=== PATIENT | male | born 1960 | race African-American/Black ===

== ENCOUNTER 2018-10-13 09:09 | Emergency (ER) | payer BC ==
[2018-10-13 09:17] VITALS: BMI 28.5
--- NOTE | 2018-10-13 09:25 | PDOC ---
History of Present Illness - General Chief Complaint: Diarrhea Stated Complaint: Diarrhea and Earche Time Seen by Provider: 10/13/18 09:25 - History of Present Illness Initial Comments: 10/13/18 09:38 Mr. Yanes is a 58 yo male w/ pmh of IDDM who presents for evaluation of several weeks of ear fullness with some decrease in hearing in R hear. Patient also describes several day history of "sour stomach" he describes as non- painful however not feeling normal and associated with foul smelling burps and reflux. Patient endorses 4 bowel movements this morning as well he describes as loose. The patient denies chest pain, shortness of breath, headache and dizziness. Denies fever, chills, nausea, vomit, and constipation. Denies dysuria, frequency , urgency and hematuria. Past History - Past Medical History Allergies/Adverse Reactions: Allergies Allergy/AdvReac Type Severity Reaction Status Date / Time No Known Allergies Allergy Verified 10/13/18 09:17 Home Medications: Ambulatory Orders Dulaglutide [Trulicity] 0.75 mg SQ DAILY 10/13/18 Insulin Glargine,Hum.rec.anlog [Lantus] 0 unit SQ ASDIR 10/13/18 COPD: No CHF: No Diabetes: Yes GI Disorders: No Liver Disease: No - Surgical History Cardiac Surgery: No Cholecystectomy: No - Immunization History Immunization Up to Date: No - Suicide/Smoking/Psychosocial Hx Smoking History: Never smoked Have you smoked in the past 12 months: No Information on smoking cessation initiated: No Hx Alcohol Use: No Drug/Substance Use Hx: No Review of Systems - Review of Systems Comments:: 10/13/18 09:40 GENERAL/CONSTITUTIONAL: No fever or chills. No weakness. HEAD, EYES, EARS, NOSE AND THROAT: +R ear fullness and decreased hearing as described. No change in vision. No ear pain or discharge. No sore throat. CARDIOVASCULAR: No chest pain or shortness of breath RESPIRATORY: No cough, wheezing, or hemoptysis. GASTROINTESTINAL: +Upset stomach w/ gastritis-like symptoms. Diarrhea today as described. No nausea, vomiting, or constipation. GENITOURINARY: No dysuria, frequency, or change in urination. MUSCULOSKELETAL: No joint or muscle swelling or pain. No neck or back pain. SKIN: No rash NEUROLOGIC: No headache, vertigo, loss of consciousness, or change in strength/ sensation. ENDOCRINE: No increased thirst. No abnormal weight change HEMATOLOGIC/LYMPHATIC: No anemia, easy bleeding, or history of blood clots. ALLERGIC/IMMUNOLOGIC: No hives or skin allergy. *Physical Exam - Vital Signs Last Vital Signs Temp Pulse Resp BP Pulse Ox 97.9 F 59 L 16 141/67 99 10/13/18 09:14 1218 09:14 1218 09:14 18 09:14 10/13/18 09:14 - Physical Exam Comments: 10/13/18 09:40 GENERAL: Awake, alert, and fully oriented, in no acute distress HEAD: No signs of trauma, normocephalic, atraumatic EYES: PERRLA, EOMI, sclera anicteric, conjunctiva clear ENT: +Moderate amount of wax noted to R ear. Auricles normal inspection, hearing grossly normal, nares patent, oropharynx clear without exudates. Moist mucosa NECK: Normal ROM, supple, no lymphadenopathy, JVD, or masses LUNGS: No distress, speaks full sentences, clear to auscultation bilaterally HEART: Regular rate and rhythm, normal S1 and S2, no murmurs, rubs or gallops, peripheral pulses normal and equal bilaterally. ABDOMEN: Soft, nontender, normoactive bowel sounds. No guarding, no rebound. No masses EXTREMITIES: Normal inspection, Normal range of motion, no edema. No clubbing or cyanosis. NEUROLOGICAL: Cranial nerves II through XII grossly intact. Normal speech, normal gait, no focal sensorimotor deficits SKIN: Warm, Dry, normal turgor, no rashes or lesions noted. Moderate Sedation - Procedure Monitoring Vital Signs: Procedure Monitoring Vital Signs Temperature 97.9 F 10/13/18 09:14 Pulse Rate 59 L 10/13/18 09:14 Respiratory Rate 16 10/13/18 09:14 Blood Pressure 141/67 10/13/18 09:14 O2 Sat by Pulse Oximetry (%) 99 10/13/18 09:14 ED Treatment Course - LABORATORY CBC & Chemistry Diagram: 10/13/18 10:40 10/13/18 10:30 Medical Decision Making - Medical Decision Making 10/13/18 12:09 Mr. Yanes is a 58 yo male w/ pmh as described who presents for evaluation of symptoms c/w otitis externa plus gastritis. Patient given ciprodex drops for treatment of ear pain and GI cocktail w/ some relief from gastritis symptoms. No concerning findings found on exam. Labs grossly wnl as below. Discharging w/ GI and ENT follow-up. Laboratory Results - last 24 hr 10/13/18 10/13/18 10:30 10:40 WBC 9.0 RBC 4.76 Hgb 15.3 Hct 43.7 MCV 91.8 MCH 32.1 MCHC 35.0 RDW 13.3 Plt Count 209 MPV 8.8 D Absolute Neuts (auto) 5.7 Neutrophils % 63.9 Lymphocytes % 23.9 Monocytes % 8.9 Eosinophils % 2.2 Basophils % 1.1 Nucleated RBC % 0 Sodium 136 Potassium 4.6 Chloride 103 Carbon Dioxide 25 Anion Gap 8 BUN 17 Creatinine 0.9 Creat Clearance w eGFR > 60 Random Glucose 143 H Calcium 8.9 Total Bilirubin 0.5 AST 26 ALT 28 Alkaline Phosphatase 149 H Total Protein 7.9 Albumin 3.8 *DC/Admit/Observation/Transfer Diagnosis at time of Disposition: Ear pain, right Gastritis Qualifiers: Gastritis type: unspecified gastritis Chronicity: unspecified Gastritis bleeding: presence of bleeding unspecified Qualified Code(s): K29.70 - Gastritis , unspecified, without bleeding - Discharge Dispostion Disposition: HOME Condition at time of disposition: Stable - Referrals Referrals: Whit Barbour MD [Primary Care Provider] - Clinton Sharp MD [Staff Physician] - Mary Hassan MD [Staff Physician] - - Patient Instructions Printed Discharge Instructions: How to Instill Ear Drops, Otitis Externa, DI for Gastritis Additional Instructions: You were evaluated today in the ER for your ear and stomach symptoms. No concerning findings were found at this time. We sent a prescription to your pharmacy for ear drops which should help your ear symptoms. Take all medications as proscribed. You may continue to take over the counter pepcid for your GI symptoms. We have provided you with ENT and GI referral information. Please follow-up using provided contact info. Return to ER if any fever, chills , pain, or other concerning symptoms. - Post Discharge Activity
[2018-10-13] MEDS ORDERED: FAMOTIDINE 20 MG/50 ML IVPB 20 MG/50 ML MG IVPB ONE ×2 (09:37→10:15)
[2018-10-13] MEDS ORDERED: MAG HYDROX/AL HYDROX/SIMETH 30 ML UNIT-DOSE CUP PO ONE (09:37)
[2018-10-13] MEDS ORDERED: LIDOCAINE VISCOUS 2% ORAL/TOP 20 ML UNIT-DOSE CUP MM ONE (09:37)
[2018-10-13] MEDS ORDERED: LIDOCAINE VISCOUS 2% ORAL/TOP 20 ML UNIT-DOSE CUP ONE (10:14)
[2018-10-13] MEDS ORDERED: MAG HYDROX/AL HYDROX/SIMETH 30 ML UNIT-DOSE CUP ONE (10:15)
--- NOTE | 2018-10-13 10:52 | PDOC ---
Attending Attestation - Resident Resident Name: Rayo Oliver - ED Attending Attestation I have performed the following: I have examined & evaluated the patient, The case was reviewed & discussed with the resident, I agree w/resident's findings & plan, Exceptions are as noted - HPI HPI: 10/13/18 10:46 58 M with DM presenting to ED with R ear pain and fullness. States that he first noticed it several days ago but today began to feel like there was something in his ear. Denies F/C. Denies hearing loss. Denies KHAN. Pt also reports several weeks of acid reflux, as well as one day of diarrhea. Denies abdominal pain. Denies N/V. Denies constipation. Denies CP/SOB. - Physicial Exam PE: 10/13/18 10:47 "GENERAL: Awake, alert, and fully oriented, in no acute distress. HEAD: No signs of trauma EYES: PERRLA, EOMI, sclera anicteric, conjunctiva clear ENT: + mild erythema external auditory canal R ear, TMs wnl bilaterally, hearing grossly normal, nares patent, oropharynx clear without exudates. Moist mucosa NECK: Nontender, no stepoffs, Normal ROM, supple, no lymphadenopathy, JVD, or masses LUNGS: Breath sounds equal, clear to auscultation bilaterally. No wheezes, and no crackles HEART: Regular rate and rhythm, normal S1 and S2, no murmurs, rubs or gallops ABDOMEN: Soft, nontender, normoactive bowel sounds. No guarding, no rebound. No masses EXTREMITIES: Normal range of motion, no edema. No clubbing or cyanosis. No cords, erythema, or tenderness NEUROLOGICAL: Cranial nerves II through XII intact. 5/5 strength and sensation in all extremities, Normal speech, normal gait, normal cerebellar function SKIN: Warm, Dry, normal turgor, no rashes or lesions noted. - Medical Decision Making 10/13/18 10:47 58 M with R ear pain. Suspect otitis externa. No evidence of otitis media. Pt with benign abdomen. Will check lytes given diarrhea. - Labs - GI cocktail - Ciprodex drops 10/13/18 12:09 Labs wnl Will DC with GI and ENT f/u Pt is well appearing, with normal vitals. Clinically stable for DC at this time. I discussed the physical exam findings, ancillary test results and final diagnoses with the patient. I answered all of the patient's questions. The patient was satisfied with the care received and felt comfortable with the discharge plan and treatment plan. The patient agrees to follow up with the primary care physician within 24-72 hours.
[2018-10-13 11:17] LABS: BASO % 1.1 % (0-2.0); EOS % 2.2 % (0-4.5); HEMATOCRIT 43.7 % (35.4-49); HEMOGLOBIN 15.3 GM/dL (11.7-16.9); LYMPH % 23.9 % (8-40); MCH 32.1 pg (25.7-33.7); MEAN CELL VOLUME 91.8 fl (80-96); MEAN PLT VOLUME 8.8 fl (7.5-11.1); MONO % 8.9 % (3.8-10.2); NEUT % 63.9 % (42.8-82.8); PLATELET COUNT 209 K/MM3 (134-434); RBC 4.76 M/mm3 (4.00-5.60); RDW 13.3 % (11.9-15.9)
[2018-10-13 11:59] LABS: ALBUMIN 3.8 g/dl (3.4-5.0); ALK PHOS 149 U/L (45-117); ANION GAP 8 MMOL/L (8-16); BILIRUBIN,TOTAL 0.5 mg/dL (0.2-1); BLOOD UREA NITROGEN 17 mg/dL (7-18); CALCIUM 8.9 mg/dL (8.5-10.1); CHLORIDE 103 mmol/L (98-107); CO2 25 mmol/L (21-32); CREATININE 0.9 mg/dL (0.55-1.3); GLUCOSE,RANDOM 143 mg/dL (74-106); POTASSIUM 4.6 mmol/L (3.5-5.1); SGOT/AST 26 U/L (15-37); SGPT/ALT 28 U/L (13-61); SODIUM 136 mmol/L (136-145); TOT PROT 7.9 g/dl (6.4-8.2)
[2018-10-13 12:33] VITALS: BP 135/68; PULSE 60; TEMP 98
== END 2018-10-13 12:32 | disposition home or self-care (01) ==
LOC: JER 09:09
PROC: 3E033GC Introduction of Other Therapeutic Substance into Peripheral Vein, Percutaneous Approach (ICD-10-PCS; principal; 2018-10-13)
DX: H92.01 Otalgia, right ear (principal); K29.70 Gastritis, unspecified, without bleeding; E11.9 Type 2 diabetes mellitus without complications
CPT/HCPCS: 36415; 80053; 85025; 99283-25